=== PATIENT | female | born 1970 | race Caucasian/White ===

== ENCOUNTER 2016-06-12 10:45 | Emergency (ER) | payer BC ==
[2016-06-12] MEDS ORDERED: Sodium Chloride 0.9% 10 ML Syringe FLUSH PRN (11:19)
[2016-06-12] MEDS ORDERED: Sodium Chloride 0.9% 1,000 ML IV ONE (11:20)
--- NOTE | 2016-06-12 11:25 | EDM.PDOC ---
ED HISTORY OF PRESENT ILLNESS - General Chief Complaint: Cardiovascular Problem Stated Complaint: BLACKING OUT Time Seen by Provider: 06/12/16 11:01 Source of Information: Reports: Patient History Limitations: Reports: No limitations - History of Present Illness INITIAL COMMENTS - FREE TEXT/NARRATIVE: Patient is a 45 year old female who presents to the E.D. complaining of pain 3 episodes of dizziness and near syncope. Patient states while sitting at her desk this am she experienced two episodes in the matter of 45 minutes. States was working the computer and became dizzy with tingling to her feet bilaterally and tunnel vision. States vision blacked out for a few seconds (3) and came back to immediately. States she did not lose consciousness at all. 3rd episode occurred while at the walk in clinic just prior to arrival following the similar pattern from previous. Walk In Clinic advised her to be evaluated in the E.D. Patient has been under alot of stress at work. More than usual. [facility] she has been on a high protein/low carb diet for a few months and has lost approximately 30+ lbs since February. [facility] she drinks plenty of fluids and worksout 20 minutes daily. [facility] with weight loss PCP will be seeing the patient back in one week to decrease bp medications (propranolol/HCTZ). [facility] BP has been running 102/s. Presents to the E.D. 162/94. She denies taking any supplements. Denies CP, fever, dysuria, SOB, N/V, sweating, unilateral weakness , diarrhea, slurred speech, or difficulty swallowing. PMH: hypercholesteremia, Depression, HTN MEDS: propranolol, HCTZ, citalopram, simvastatin Timing/Duration: Reports: Intermittent Severity: mild Location, General: Reports: generalized Improves with: Reports: None Worsens with: Reports: None Context, General: Reports: Other (none stated) Associated Symptoms (General): Reports: weakness (generalized) Treatments [employer]: Reports: Other (see below) (none stated) - Related Data Allergies/ADRs: Allergies Allergy/AdvReac Type Severity Reaction Status Date / Time codeine Allergy Cannot Verified 06/12/16 11:04 Remember Home Meds: Home Meds Citalopram Hydrobromide [Celexa] 40 mg PO DAILY 06/12/16 [History] Hydrochlorothiazide 12.5 mg PO DAILY 06/12/16 [History] Propranolol [Inderal LA] 80 mg PO BID 06/12/16 [History] Simvastatin [Zocor] 20 mg PO DAILY 06/12/16 [History] Social & Family History - Tobacco Use Years of Tobacco use: 25 - Alcohol Use Days Per Week of Alcohol Use: 1 Number of Drinks Per Day: 1 Total Drinks Per Week: 1 - Recreational Drug Use Recreational Drug Use: No ED ROS GENERAL - Review of Systems Review Of Systems: See Below Constitutional: Denies: fever, chills, malaise, decreased appetite HEENT: Reports: Vision change Respiratory: Denies: Shortness of Breath, Cough, Sputum, Hemoptysis Cardiovascular: Denies: Chest pain, Edema, Lightheadedness, Orthopnea, Palpitations, PND, Syncope GI/Abdominal: Denies: Abdominal pain, Nausea, Vomiting : Denies: dysuria Musculoskeletal: Denies: neck pain, back pain Neurological: Denies: Dizziness, Headache, Numbness, Syncope, Tingling Psychiatric: Reports: Anxiety, Depression ED EXAM, GENERAL - Physical Exam Exam: See Below Exam Limited By: No limitations General Appearance: alert, WD/WN, no apparent distress Eye Exam: bilateral eye: EOMI, PERRL Ears: hearing grossly normal Nose: normal inspection Throat/Mouth: Normal inspection, Normal oropharynx, Normal voice, No airway compromise Neck: normal inspection, supple, full range of motion. No: carotid bruit ( bilaterally) Respiratory/Chest: no respiratory distress, lungs clear, normal breath sounds, no accessory muscle use, chest non-tender Cardiovascular: normal peripheral pulses, regular rate, rhythm, no murmur Peripheral Pulses: 2+: radial (L), radial (R) GI/Abdominal: normal bowel sounds, non tender, no organomegaly, no distention Back Exam: normal inspection Extremities: non-tender, no pedal edema, normal capillary refill Neurological: alert, oriented, CN II-XII intact, normal cognition, normal gait, no motor/sensory deficits Psychiatric: normal affect, normal mood Skin Exam: Warm, Dry, Intact, Normal color, No rash Course - Vital Signs Last Recorded V/S: Last Vital Signs Temp 97.4 F 06/12/16 10:58 Pulse 71 06/12/16 13:05 Resp 16 06/12/16 10:58 BP 134/87 06/12/16 13:05 Pulse Ox 96 06/12/16 10:58 Orthostatic Blood Pressure [ 149/122 Standing] Orthostatic Blood Pressure [ 148/105 Sitting] Orthostatic Blood Pressure [ 142/82 Supine] - Orders/Labs/Meds Orders: Active Orders 24 hr Category Date Time Status EKG Documentation Completion [RC] STAT Care 06/12/16 11:20 Active Orthostatic Vital Signs [RC] ASDIRECTED Care 06/12/16 11:21 Active Peripheral IV Care [RC] . DIRECTED Care 06/12/16 11:20 Active Peripheral IV Insertion Adult [OM.PC] Stat Oth 06/12/16 11:20 Ordered Labs: Laboratory Tests 06/12/16 06/12/16 06/12/16 Range/Units 11:45 11:45 11:55 WBC 9.38 (3.98-10.04) K/mm3 RBC 5.11 (3.98-5.22) M/mm3 Hgb 15.2 (11.2-15.7) gm/L Hct 44.2 (34.1-44.9) % MCV 86.5 (79.4-94.8) fl MCH 29.7 (25.6-32.2) pg MCHC 34.4 (32.2-35.5) g/dl RDW Std Deviation 39.8 (36.4-46.3) fL Plt Count 270 (182-369) K/mm3 MPV 9.7 (9.4-12.3) fl Neut % (Auto) 58.5 (34.0-71.1) % Lymph % (Auto) 30.4 (19.3-51.7) % [place] % (Auto) 8.7 (4.7-12.5) % Eos % (Auto) 1.8 (0.7-5.8) Baso % (Auto) 0.4 (0.1-1.2) % Neut # (Auto) 5.48 (1.56-6.13) K/mm3 Lymph # (Auto) 2.85 (1.18-3.74) K/mm3 [place] # (Auto) 0.82 H (0.24-0.36) K/mm3 Eos # (Auto) 0.17 (0.04-0.36) K/mm3 Baso # (Auto) 0.04 (0.01-0.08) K/mm3 Sodium 141 (136-145) mEq/L Potassium 3.7 (3.5-5.1) mEq/L Chloride 103 (98-107) mEq/L Carbon Dioxide 28 (21-32) mEq/L Anion Gap 13.7 (5-15) BUN 9 (7-18) mg/dL Creatinine 0.7 (0.55-1.02) mg/dL Est Cr Clr Drug Dosing 91.32 mL/min Estimated GFR (MDRD) > 60 (>60) mL/min BUN/Creatinine Ratio 12.9 L (14-18) Glucose 102 (74-106) mg/dL Calcium 9.3 (8.5-10.1) mg/dL Total Bilirubin 0.8 (0.2-1.0) mg/dL AST 14 L (15-37) U/L ALT 19 (14-59) U/L Alkaline Phosphatase 94 (46-116) U/L Troponin I < 0.017 (0.00-0.056) ng/mL Total Protein 7.8 (6.4-8.2) g/dl Albumin 3.9 (3.4-5.0) g/dl Globulin 3.9 gm/dL Albumin/Globulin Ratio 1.0 (1-2) TSH 3rd Generation 1.884 (0.358-3.74) uIU/mL Urine Color Light yellow (Yellow) Urine Appearance Clear (Clear) Urine pH 6.0 (5.0-8.0) Ur Specific [place] 1.015 (1.005-1.030) Urine Protein Negative (Negative) Urine Glucose (UA) Negative (Negative) Urine Ketones Negative (Negative) Urine Occult Blood Negative (Negative) Urine Nitrite Negative (Negative) Urine Bilirubin Negative (Negative) Urine Urobilinogen 0.2 (0.2-1.0) Ur Leukocyte Esterase Negative (Negative) Urine RBC Not seen (0-5) /hpf Urine WBC 0-5 (0-5) /hpf Ur Epithelial Cells Not Reportable Ur Squamous Epith Cells 5-10 H (0-5) /hpf Urine Bacteria Rare (FEW) /hpf Urine Mucus Not seen (FEW) /hpf Meds: Medications Discontinued Medications Generic Name Dose Route Start Last Admin Trade Name Freq PRN Reason Stop Dose Admin Sodium Chloride 1,000 mls @ 999 mls/hr 06/12/16 11:20 06/12/16 13:03 Normal Saline IV 06/12/16 12:20 999 mls/hr ONETIME ONE Administration Sodium Chloride 10 ml 06/12/16 11:19 06/12/16 13:03 Saline Flush FLUSH 10 ml ASDIRECTED PRN Administration Keep Vein Open - Re-Assessments/Exams Free Text/Narrative Re-Assessment/Exam: 06/12/16 11:22 Ordered peripheral IV with NS 999 mls/hr, orthostatic vitals, cbc , c14, tsh, ekg, cxr, troponin, and ua. Vitals were nonorthostatic. EKG: Sinus rhythm, rate of 62, VT interval 160, QTc 427, nonspecific ST changes. 1330 Labs reviewed. Essentially normal. Discussed this with patient. She is ready to be discharged home. Discharge instructions as documented. Departure - Departure Time of Disposition: 13:43 Disposition: Home, Self-Care 01 Condition: good Clinical Impression: Near syncope Instructions: Near-Syncope Referrals: Pamela Dotson PA-C [Primary Care Provider] - Forms: ED Department Discharge Additional Instructions: Unclear etiology of recent complaints. Labs and studies obtained here were essentially normal. Will have you push the fluids, ensure balanced diet. Slow down with body position changes allowing you to equalize with position changes. If you become dizzy sit or lay down allowing for this to subside. Followup with PCP this coming week for evaluation and treatment. Return to the E.D. if you develop chest pain, palpitations, shortness of breath, syncopal episode, any neurological symptoms. - My Orders Last 24 Hours: My Active Orders 06/12/16 11:20 EKG Documentation Completion [RC] STAT Peripheral IV Care [RC] . DIRECTED Peripheral IV Insertion Adult [OM.PC] Stat 06/12/16 11:21 Orthostatic Vital Signs [RC] ASDIRECTED - Assessment/Plan Last 24 Hours: My Active Orders 06/12/16 11:20 EKG Documentation Completion [RC] STAT Peripheral IV Care [RC] . DIRECTED Peripheral IV Insertion Adult [OM.PC] Stat 06/12/16 11:21 Orthostatic Vital Signs [RC] ASDIRECTED
--- NOTE | 2016-06-12 12:58 | CR ---
Chest: Two views of the chest were obtained. Comparison: No previous chest x-ray. Heart size and mediastinum are normal. Lungs are clear. Mild degenerative change is scattered within the spine with disc space narrowing and osteophytes. Impression: 1. Incidental spine findings. 2. Nothing acute is identified on two-view chest x-ray. Diagnostic code #2
[2016-06-12 13:05] VITALS: BP 134/87
== END 2016-06-12 13:58 | disposition home or self-care (01) ==
LOC: JD.ED 10:45
DX: R55 Syncope and collapse (principal); Z79.899 Other long term (current) drug therapy; Z88.5 Allergy status to narcotic agent
CPT/HCPCS: 36415; 71020; 80053; 81001; 84443; 84484; 85025; 93005; 96360; 99284; J7040; J7050

== ENCOUNTER 2022-08-31 12:28 | Emergency (ER) | payer BC ==
[2022-08-31] MEDS ORDERED: Sodium Chloride 0.9% 10 ML Syringe FLUSH PRN ×2 (12:58→13:02)
[2022-08-31] MEDS ORDERED: Sodium Chloride 0.9% 1,000 ML IV SCH (13:00)
[2022-08-31] MEDS ORDERED: Iopamidol 612 MG/ML 100 ML Bottle IVPUSH ONE (13:02)
[2022-08-31 13:26] LABS: BASOPHILS ABSOLUTE AUTO 0.03 K/mm3 (0.01-0.08); BASOPHILS PERCENT AUTO 0.4 % (0.1-1.2); EOSINOPHILS ABSOLUTE AUTO 0.26 K/mm3 (0.04-0.36); EOSINOPHILS PERCENT AUTO 3.2 (0.7-5.8); HEMATOCRIT 45.5 % (34.1-44.9); HEMOGLOBIN 15.6 gm/dl (11.2-15.7); IMMATURE GRAN ABSOLUTE AUTO 0.02 K/mm3 (0.00-0.10); IMMATURE GRAN PERCENT AUTO 0.2 % (<=1.0); LYMPHOCYTES ABSOLUTE AUTO 2.87 K/mm3 (1.18-3.74); LYMPHOCYTES PERCENT AUTO 35.7 % (19.3-51.7); MEAN CORPUSCULAR HEMOGLOBIN 29.6 pg (25.6-32.2); MEAN CORPUSCULAR HGB CONC 34.3 g/dl (32.2-35.5); MEAN CORPUSCULAR VOLUME 86.3 fl (79.4-94.8); MEAN PLATELET VOLUME 9.2 fl (9.4-12.3); MONOCYTES ABSOLUTE AUTO 0.77 K/mm3 (0.24-0.36); MONOCYTES PERCENT AUTO 9.6 % (4.7-12.5); NEUTROPHILS ABSOLUTE AUTO 4.09 K/mm3 (1.56-6.13); NEUTROPHILS PERCENT AUTO 50.9 % (34.0-71.1); PLATELET COUNT,PLT 328 K/mm3 (182-369); RED BLOOD CELL COUNT 5.27 M/mm3 (3.98-5.22); WHITE BLOOD CELL COUNT,WBC 8.04 K/mm3 (3.98-10.04)
[2022-08-31 13:32] LABS: A/G RATIO 0.9 (1-2); ALANINE AMINOTRANSFERASE,ALT 49 U/L (14-59); ALBUMIN 3.9 g/dl (3.4-5.0); ALKALINE PHOSPHATASE 102 U/L (46-116); ANION GAP 12.7 (5-15); ASPARTATE AMNIOTRANSFERASE,AST 56 U/L (15-37); BILIRUBIN TOTAL 0.6 mg/dL (0.2-1.0); BLOOD UREA NITROGEN,BUN 11 mg/dL (7-18); BUN/CREATININE RATIO 15.7 (14-18); C-REACTIVE PROTEIN 0.3 mg/dL (<1.0); CALCIUM 9.5 mg/dL (8.5-10.1); CARBON DIOXIDE,CO2 28 mEq/L (21-32); CHLORIDE,CL 99 mEq/L (98-107); CREATININE 0.7 mg/dL (0.55-1.02); EST CRCL DRUG DOSING (CG) 84.59 mL/min; ESTIMATED GFR 104 mL/min (>60); GLUCOSE RANDOM 118 mg/dL (70-99); LIPASE 101 U/L (73-393); POTASSIUM,K 3.7 mEq/L (3.5-5.1); PROTEIN TOTAL,TP 8.4 g/dl (6.4-8.2); SODIUM,NA 136 mEq/L (136-145); TROPONIN I HIGH SENSITIVITY < 4 pg/mL (<=51)
[2022-08-31 15:19] VITALS: BP 116/60; PULSE 72
== END 2022-08-31 14:35 | disposition home or self-care (01) ==
LOC: JD.ED 12:28
DX: R07.89 Other chest pain (principal); R10.10 Upper abdominal pain, unspecified; I10 Essential (primary) hypertension; E78.00 Pure hypercholesterolemia, unspecified; Z88.5 Allergy status to narcotic agent; Z79.899 Other long term (current) drug therapy
CPT/HCPCS: 36415; 74177; 80053; 83690; 84484; 85025; 86140; 99284; J3490; Q9967; 93005; 93010